=== PATIENT | female | born 2000 | race Hispanic/Latino ===

== ENCOUNTER 2024-06-30 20:58 | Emergency (ER) | payer MEDICAID ==
[~2024-06-30] VITALS: Ht 162.6 cm; Wt 84.4 kg
--- NOTE | 2024-06-30 21:44 | ERN ---
ED Note History of Present Illness Stated Complaint: 38 WEEKS GEST, VOMITING, DIZZY Chief Complaint: OB>20 weeks gest. Time Seen by MD: 21:11 Dictation: This is a 23-year-old female who presented to the emergency room with complaints of severe nausea and vomitings that started while she was in [facility]. She stated that she had a burrito for dinner and later went to [facility] for shopping when she suddenly became dizzy and nauseated. She started vomitings and also had a bout of diarrhea. No fevers chills or rigors no hematemesis or melena no other family members are sick. No syncope no fall. She is 38 weeks gestation. Denies any abdominal pain cramping lower pelvic pain or back pain. No history of any vaginal discharge or leak of amniotic fluid She came with her father Temperature 97.2� pulse 87 respirations 20 blood pressure 116/71 with a pulse oximetry of 99% on room air Obese specialist-Dr. Bhavik Santiago Good care with a no major health issues during the . Allergies: Coded Allergies: No Known Allergies (Unverified Allergy, Unknown, 06/30/24) Home Meds Active Scripts Ondansetron (Ondansetron Odt) 4 Mg Tab.rapdis, 4 MG PO Q6HPRN PRN for nausea, #16 TAB 0 Refills Prov:MICHELLE GOMEZ MD 07/01/24 Prednisone (Prednisone) 20 Mg Tablet, 1 TAB PO AD for 6 Days, #14 TAB 0 Refills TAKE 1 TAB BY MOUTH THREE TIMES PER DAY X3 DAYS, THEN TAKE 1 TAB BY MOUTH TWICE A DAY X2 DAYS, THEN TAKE 1 TAB BY MOUTH ONCE A DAY X1 DAY. Prov:MICHELLE GOMEZ MD 07/01/24 Meclizine HCl (Meclizine HCl) 25 Mg Tablet, 25 MG PO TID for vertigo, #30 TAB 0 Refills Prov:MICHELLE GOMEZ MD 07/01/24 Past Medical History Past Medical History: No Pertinent History Surgical History: None Family History: Negative Social History: Negative LMP: Oct 09, 2023 : 2 Para: 1 Aborts: 0 RN Note Reviewed/Agreed w/PFSH: Yes Review of System Dictation Constitutional: Negative for fever,chills, and weight loss Eyes: Negative for injury, pain,redness, and discharge ENT: Negative for injury,pain or swelling Cardiovascular: Negative for chest pain, palpitations, and edema Respiratory: Negative for shortness of breath, cough, and wheezing, Abdomen/GI: Negative for abdominal pain, positive for nausea, vomiting, diarrhea , Back: Negative for injury and pain : Negative for injury, bleeding and discharge MS/Extremity: Negative for injury and deformity Skin: Negative for rash, and discoloration Neuro: Negative for headache, weakness, numbness, tingling, and seizure Psych: Negative for suicide ideation, homicidal ideation, and hallucinations Initial Vital Sign VS Vital Signs Date Time Temp Pulse Resp B/P (MAP) Pulse Ox O2 Delivery O2 Flow Rate FiO2 06/30/24 21:14 97.2 87 20 116/71 99 Room Air 06/30/24 23:03 0 21 Physical Exam Dictation General: awake, alert, NAD Head/Face: Normocephalic, atraumatic Eyes: PERRL, EOMI, vision at baseline ENT: oral cavity clear, TMs clear, no signs of infection Neck: Trachea midline, supple, no nuchal rigidity Cardiovascular: RRR, normal S1/S2, No MRGs, no JVD Respiratory: CTAB, no respiratory distress, No rales or wheezes Abdomen: Soft, non-tender, non-distended, normal bowel sounds, no guarding or rebound. Skin: Warm, dry, normal turgor, no rash MS/Extremity: Pulses equal, no cyanosis, neurovascular intact, FROM Neuro: COAx4, GCS 15, strength 5/5, CN 2-12 intact, normal cerebellar exam, normal gait, Psych: Normal behavior, mood, and affect normal Extremities-trace edema without any palpable cords, Homans sign is negative Results (Laboratory/Radiology) Laboratory/Radiology Laboratory Tests Test 06/30/24 21:22 White Blood Count 8.0 K/uL (4.8-10.8) Red Blood Count 3.62 MIL/uL (4.00-5.50) L Hemoglobin 11.2 g/dL (12.0-16.0) L Hematocrit 33.9 % (36-48) L Mean Corpuscular Volume 93.6 fL (79-99) Mean Corpuscular Hemoglobin 30.9 pg (27.0-33.0) Mean Corpuscular Hemoglobin Concent 33.0 g/dL (32.0-36.0) Red Cell Distribution Width 13.6 % (11.0-15.5) Platelet Count 272 K/uL (130-400) Mean Platelet Volume 10.3 fL (7.5-10.5) Immature Granulocyte % (Auto) 0.2 % (0-1) Neutrophils (%) (Auto) 47.0 % (40.0-77.0) Lymphocytes (%) (Auto) 37.7 % (21.0-51.0) Monocytes (%) (Auto) 11.6 % (3.0-13.0) Eosinophils (%) (Auto) 3.0 % (0.0-8.0) Basophils (%) (Auto) 0.5 % (0.0-5.0) Neutrophils # (Auto) 3.8 K/uL (1.8-7.7) Lymphocytes # (Auto) 3.0 K/uL (1.0-4.8) Monocytes # (Auto) 0.9 K/uL (0.1-1.0) Eosinophils # (Auto) 0.24 K/uL (0.00-0.70) Basophils # (Auto) 0.04 K/uL (0.00-0.20) Absolute Immature Granulocyte (auto 0.02 K/uL (0-1) Nucleated Red Blood Cells 0.0 % (0.0-0.19) Sodium Level 140 mmol/L (136-145) Potassium Level 3.6 mmol/L (3.5-5.1) Chloride Level 106 mmol/L (101-111) Carbon Dioxide Level 25 mmol/L (21-32) Blood Urea Nitrogen 10 mg/dL (7-18) Creatinine 0.6 mg/dL (0.5-1.0) Glomerular Filtration Rate Calc 130 mL/min (>90) Random Glucose 78 mg/dL (70-105) Total Calcium 8.1 mg/dL (8.5-10.1) L Total Bilirubin 0.2 mg/dL (0.2-1.0) Aspartate Amino Transf (AST/SGOT) 13 U/L (10-37) Alanine Aminotransferase (ALT/SGPT) 14 U/L (12-78) Alkaline Phosphatase 174 U/L (50-136) H Total Protein 7.2 g/dL (6.0-8.3) Albumin 2.9 g/dL (3.5-5.0) L Lipase 25 U/L (16-77) Labs Reviewed?: Yes ED Course ED Course Orders Procedure Category Date Status Time Lactated Ringers PHA 06/30/24 Complete 1000ml (Lactated 21:27 Ondansetron 4mg Inj PHA 06/30/24 Complete (Zofran 4mg Inj) 21:30 Cbc With Differential LAB 06/30/24 Complete 21:27 Comprehensive LAB 06/30/24 Complete Metabolic Panel 21:27 Lipase LAB 06/30/24 Complete 21:36 Urinalysis Profile LAB 06/30/24 Logged 21:36 Ondansetron 4mg Inj PHA 06/30/24 Complete (Zofran 4mg Inj) 23:00 Methylprednisolone PHA 06/30/24 Complete Succ 125mg (Solu-Medr 23:30 Meclizine Hcl 12.5 Mg PHA 06/30/24 Complete (Antivert 12.5 Mg) 23:30 Meclizine Hcl 25 Mg PHA 07/01/24 Complete (Antivert 25 Mg) 04:00 Current Medications Medications (Trade) Dose Ordered Sig/Lele Route PRN Reason Start Time Stop Time Status Last Admin Dose Admin Lactated Ringer's 1,000 ml @ 0 mls/hr Q0M STAT IV 06/30/24 21:27 06/30/24 21:33 DC 06/30/24 22:09 Meclizine HCl (ANTIvert 12.5 mg) 12.5 mg ONCE ONCE PO 06/30/24 23:30 06/30/24 23:31 DC 06/30/24 23:18 Meclizine HCl (ANTIvert 25 mg) 25 mg ONCE ONCE PO 07/01/24 04:00 07/01/24 04:01 DC 07/01/24 03:57 Methylprednisolone Sodium Succinate (Solu-medROL 125MG) 60 mg ONCE ONCE IVP 06/30/24 23:30 06/30/24 23:31 DC 06/30/24 23:18 Ondansetron HCl (zoFRAN 4MG INJ) 4 mg ONCE ONCE IVP 06/30/24 21:30 06/30/24 21:33 DC 06/30/24 22:09 Ondansetron HCl (zoFRAN 4MG INJ) 4 mg ONCE ONCE IVP 06/30/24 23:00 06/30/24 23:01 DC 06/30/24 22:57 Vital Signs Date Time Temp Pulse Resp B/P (MAP) Pulse Ox O2 Delivery O2 Flow Rate FiO2 07/01/24 04:00 98.1 72 16 107/58 100 Room Air* 0 21 06/30/24 23:03 71 18 113/59 100 Room Air* 0 21 06/30/24 21:14 97.2 87 20 116/71 99 Room Air We will perform diagnostic labs, advanced imaging and administer medications according to the patient's complaint. Once the results are available, will review and personally interpreted the labs to rule out any acute life-threatening emergency the trach require immediate intervention and treatment. I will then re-evaluate the patient after treatment and diagnostic exams have return to determine whether the patient requires any further testing, can safely be discharged home or need further admission to hospital for additional treatment and evaluation. Labs reviewed CBC normal CMP is acceptable mild elevation in alkaline phosphatase as expected in . Lipase is 25 Aggressive IV hydration and antiemetics She also describes the dizziness and vertigo symptoms along with nausea and emesis every time she moves her head. 2220 remains sick still vomitings. Additional antiemetic given Trial of steroid and meclizine given. On re-evaluation resting vital signs stable I updated the patient and her parents at bedside on all the available labs and possibilities and plan of care. 2300-patient is beginning to feel slightly better and is resting Foot on heart rates excellent. No contractions. Two thousand four hundred-I explained to the patient and parents that if she continues to have symptoms she may have to stay overnight and be transferred to other facility with OB services. Patient stated that she would rather be discharged to home than be transferred once she feels better so she would sleep in her own bed. The other option I offered was to monitor her in the ER for symptom improvement and reassess the situation She was able to get up and go to the bathroom by herself however with the movement of the head she began experiencing nausea and vertigo symptoms again 3:30 a.m. patient's father at bedside patient is feeling better and she is hungry and would like to give a trial of juice and liquids. We will also repeat the steroid meclizine and additional fluids 2 L was also started. If she tolerates this without any major issues then we will plan to discharge her to follow up with her Ob Medical Decision Making MDM MDM: Differential diagnosis: Gastroenteritis, gastritis, benign positional vertigo, labyrinthitis, Meniere's disease Rationale: Tests considered and ordered secondary to shared decision making include: Previous outside records reviewed: Old ER visits. Risk of complication and/or morbidity or mortality of patient management: None Medications-Per medication reconciliation Need for hospitalization: Patient does not meet criteria for hospitalization. Need for emergency major/minor surgery: No There are no social concerns with this patient. Prescription drug management Prescriptions will include symptomatic care Patient's prior external medical records from other ER visits were reviewed by me as indicated. Prior testing and results from previous visits were reviewed. Prior tests were taken into account with medical decision making and resource utilization, independent historian/historians were used to obtain complete medical history. I independently interpreted the test that were performed, results were reviewed by me and considered findings on radiology if ordered. Medical management and examination interpretation discussions were had by me with other qualified healthcare professionals as indicated for the patient's care. Problem List Problem List: (1) Severe dizziness (2) 38 weeks gestation of (3) Nausea & vomiting (4) Vertigo DX & DISP Disposition: Discharge Departure Impression: Primary Impression: Nausea & vomiting Additional Impressions: Severe dizziness, Vertigo, 38 weeks gestation of Condition: Stable Scripts Ondansetron (Ondansetron Odt) 4 Mg Tab.rapdis 4 MG PO Q6HPRN PRN for nausea, #16 TAB 0 Refills Prov: MICHELLE GOMEZ MD 07/01/24 Prednisone (Prednisone) 20 Mg Tablet 1 TAB PO AD for 6 Days, #14 TAB 0 Refills TAKE 1 TAB BY MOUTH THREE TIMES PER DAY X3 DAYS, THEN TAKE 1 TAB BY MOUTH TWICE A DAY X2 DAYS, THEN TAKE 1 TAB BY MOUTH ONCE A DAY X1 DAY. Prov: MICHELLE GOMEZ MD 07/01/24 Meclizine HCl (Meclizine HCl) 25 Mg Tablet 25 MG PO TID for vertigo, #30 TAB 0 Refills Prov: MICHELLE GOMEZ MD 07/01/24 Additional Instructions: Patient and the caregiver have been informed of all the diagnostic tests and the imaging conducted during the today's visit to the emergency room and has verbalized understanding of the results I have personally reviewed and interpreted all diagnostic exams performed here in the ER today as well as the vital signs documented by the nursing staff. The patient is now being discharged to home and should follow up with the primary care physician or the specialist as directed by the ER staff. Follow-up with primary care provider in 1 to 2 days. Take medications as directed here in the emergency room. Okay to continue home medications unless otherwise discussed during your visit in the emergency room today. Return to your nearest emergency room if symptoms worsen or if there is no improvement. Call 911 if you need immediate assistance. Take Tylenol or Motrin [id number] as needed and if no contraindications are present. Increase oral hydration. A wound culture or urine culture was ordered here in the emergency room department please follow-up with primary care provider and advise them to get repeat ports from our facility. If you had any Jhon wrap/splints that were applied here, please do not remove them until you see your primary care or specialty. Referrals: SELF,REFERRAL (PCP) MICHELLE GOMEZ MD June 30, 2024 21:44
[2024-06-30 21:46] LABS: BASOPHILS # (AUTO) 0.04 K/uL (0.00-0.20); BASOPHILS % (AUTO) 0.5 % (0.0-5.0); EOSINOPHILS # (AUTO) 0.24 K/uL (0.00-0.70); HEMATOCRIT 33.9 % (36-48); IMMATURE GRANULOCYTE ABSOLUTE 0.02 K/uL (0-1); LYMPHOCYTES % (AUTO) 37.7 % (21.0-51.0); MEAN CORPUSCULAR HEMOGLOBIN 30.9 pg (27.0-33.0); MEAN CORPUSCULAR VOLUME 93.6 fL (79-99); MONOCYTES # (AUTO) 0.9 K/uL (0.1-1.0); MONOCYTES % (AUTO) 11.6 % (3.0-13.0); NEUTROPHILS # (AUTO) 3.8 K/uL (1.8-7.7); PLATELET COUNT (AUTO) 272 K/uL (130-400); RED BLOOD CELL COUNT(AUTO) 3.62 MIL/uL (4.00-5.50); RED CELL DISTRIBUTION WIDTH 13.6 % (11.0-15.5)
[2024-06-30 21:55] LABS: CREATININE 0.6 mg/dL (0.5-1.0); POTASSIUM 3.6 mmol/L (3.5-5.1)
[2024-06-30 22:00] LABS: ALBUMIN 2.9 g/dL (3.5-5.0); BILIRUBIN,TOTAL 0.2 mg/dL (0.2-1.0); TOTAL PROTEIN, SERUM 7.2 g/dL (6.0-8.3)
[2024-06-30] MEDS: ondanSETRON 4MG INJ IVP ONE ×2 (22:09→22:57)
[2024-06-30] MEDS: LACTATED RINGERS 1000ML 1,000 ML IV STA (22:09)
[2024-06-30] MEDS: mecliZINE HCL 12.5 MG TABLET PO ONE (23:18)
[2024-06-30] MEDS: Solu-medROL 125MG VIAL IVP ONE (23:18)
[2024-07-01] MEDS ORDERED: MECL-302 PO (03:56)
[2024-07-01] MEDS ORDERED: ONDA-243 PO (03:56)
[2024-07-01] MEDS ORDERED: PRED20TA3 PO (03:56)
[2024-07-01] MEDS: mecliZINE HCL 25 MG TABLET PO ONE (03:57)
[2024-07-01 06:32] VITALS: BP 116/62; PULSE 76; RESP 16; TEMP 98.2; O2SAT 98
== END 2024-07-01 06:31 | disposition home or self-care (01) ==
LOC: EDH 20:58
DX: O21.2 Late vomiting of pregnancy (principal); O26.893 Other specified pregnancy related conditions, third trimester; R42 Dizziness and giddiness; Z3A.38 38 weeks gestation of pregnancy
CPT/HCPCS: 99284; 96374; 96361; 96375; 80053; 83690; 85025; 36415; 96376; J2919; J7120; J2405 ×2